=== PATIENT | male | born 1990 | race American Indian/Alaskan Native ===

== ENCOUNTER → 2020-02-01 | Emergency (ER) | payer SELFPAY ==
--- NOTE | 2020-02-01 04:58 | Emergency Department Report ---
ED General Adult HPI - General Chief complaint: Skin/Abscess/Foreign Body Stated complaint: BOIL Source: patient Mode of arrival: Ambulatory Limitations: No Limitations - History of Present Illness Initial comments: Patient is a 29-year-old -Indian male with no past medical history presented to the ED with acute onset persistent painful erythematous maculopapular fluctuant rash on right inguinal area and right upper thigh for the last 5 days. Patient states that the rash appeared after he shaved his pubic area with a razor blade. Patient states that while awaiting to be evaluated by the ED provider, the rash started draining purulent discharge and was assisted to dress the wound by the triage nurse. Patient denies dizziness, fever, chills, cough, nausea, vomiting, testicular pain, dysuria, urinary frequency and urgency, change in vision, numbness and tingling or weakness of right leg and back pain, hematuria or penile discharge. MD Complaint: abscess; painful rash on right inguinal area -: Sudden, days(s) (5) Location: pelvis (Right inguinal area), right, lower extremity (Right inguinal and upper right) Radiation: non-radiation Severity scale (0 -10): 2 Quality: aching, dull Consistency: constant Improves with: none Worsens with: none Associated Symptoms: denies other symptoms. denies: confusion, chest pain, cough, diaphoresis, fever/chills, headaches, loss of appetite, malaise, nausea/vomiting, rash, seizure, shortness of breath, syncope, weakness Treatments Prior to Arrival: none - Related Data Previous Rx's Medication Instructions Recorded Last Taken Type Ibuprofen [Motrin] 600 mg PO Q8H PRN #20 tablet 02/01/20 Unknown Rx Sulfamethoxazole/Trimethoprim 1 each PO BID #20 tablet 02/01/20 Unknown Rx [Bactrim DS TAB] Allergies Allergy/AdvReac Type Severity Reaction Status Date / Time No Known Allergies Allergy Unverified 02/01/20 01:25 ED Review of Systems ROS: Stated complaint: BOIL Other details as noted in HPI Constitutional: denies: chills, fever Eyes: denies: eye pain, eye discharge, vision change ENT: denies: ear pain, throat pain Respiratory: denies: cough, shortness of breath, wheezing Cardiovascular: denies: chest pain, palpitations Endocrine: no symptoms reported Gastrointestinal: denies: abdominal pain, nausea, diarrhea Genitourinary: denies: urgency, dysuria Musculoskeletal: arthralgia (Right inguinal pain due to erythematous maculopapular rash), myalgia. denies: back pain, joint swelling Skin: rash (Painful erythematous maculopapular rash on right inguinal area), change in color. denies: lesions Neurological: denies: headache, weakness, paresthesias Psychiatric: denies: anxiety, depression Hematological/Lymphatic: denies: easy bleeding, easy bruising ED Past Medical Hx - Past Medical History Previous Medical History?: No - Surgical History Past Surgical History?: No - Social History Smoking Status: Current Some Day Smoker Substance Use Type: None - Medications Home Medications: Home Medications Medication Instructions Recorded Confirmed Last Taken Type Ibuprofen [Motrin] 600 mg PO Q8H PRN #20 tablet 02/01/20 Unknown Rx Sulfamethoxazole/Trimethoprim 1 each PO BID #20 tablet 02/01/20 Unknown Rx [Bactrim DS TAB] ED Physical Exam - General Limitations: No Limitations General appearance: alert, in no apparent distress - Head Head exam: Present: atraumatic, normocephalic, normal inspection - Eye Eye exam: Present: normal appearance, PERRL, EOMI - ENT ENT exam: Present: normal exam, normal orophraynx, mucous membranes moist, TM's normal bilaterally, normal external ear exam - Neck Neck exam: Present: normal inspection, full ROM - Respiratory Respiratory exam: Present: normal lung sounds bilaterally. Absent: respiratory distress, wheezes, rales, chest wall tenderness, accessory muscle use, decreased breath sounds - Cardiovascular Cardiovascular Exam: Present: regular rate, normal rhythm, normal heart sounds. Absent: systolic murmur, diastolic murmur, rubs, gallop - GI/Abdominal GI/Abdominal exam: Present: soft, normal bowel sounds. Absent: tenderness, guarding, rebound, hyperactive bowel sounds - exam: Present: normal inspection External exam: Present: normal external exam, other (Erythematous tender maculopapular rash on right inguinal area with purulent discharge) - Extremities Exam Extremities exam: Present: normal inspection, full ROM, normal capillary refill. Absent: pedal edema, joint swelling - Back Exam Back exam: Present: normal inspection, full ROM. Absent: tenderness, muscle spasm - Neurological Exam Neurological exam: Present: alert, oriented X3, CN II-XII intact, normal gait - Psychiatric Psychiatric exam: Present: normal affect, normal mood - Skin Skin exam: Present: warm, dry, intact, normal color, rash (Erythematous maculopapular wound on right inguinal area with purulent discharge) ED Course Vital Signs 02/01/20 01:21 Temperature 98.6 F Pulse Rate 76 Respiratory 18 Rate Blood Pressure 143/98 O2 Sat by Pulse 100 Oximetry ED Medical Decision Making - Medical Decision Making This is a 29-year-old -Indian male with no past medical history presented to the ED with acute onset persistent painful erythematous maculopapular fluctuant rash on right inguinal area and right upper thigh for the last 5 days. Patient states that the rash appeared after he shaved his pubic area with a razor blade. Patient states that while awaiting to be evaluated by the ED provider, the rash started draining purulent discharge and was assisted to dress the wound by the triage nurse. In the ED, patient is alert and oriented x3 and is not in distress. The wound was cleaned and redressed and the patient was discharged home on pain medication and prophylactic antibiotics. Patient symptoms are due to acute folliculitis or cellulitis due to shaving of the pubic area. Patient was advised to follow-up with his primary care physician in 5 to 7 days for reevaluation or return to the ED immediately if symptoms get worse. - Differential Diagnosis Acute folliculitis; cellulitis; cutaneous abscess; insect bite Critical care attestation.: If time is entered above; I have spent that time in minutes in the direct care of this critically ill patient, excluding procedure time. ED Disposition Clinical Impression: Acute folliculitis, Cellulitis of right groin Disposition: DC-01 TO HOME OR SELFCARE Is pt being admited?: No Does the pt Need Aspirin: No Condition: Stable Instructions: Cellulitis (ED), Folliculitis (ED) Additional Instructions: Take medication with food, drink plenty of fluids and follow-up with your primary care physician in 5 to 7 days for reevaluation. Return to the ED immediately if symptoms get worse. Prescriptions: Sulfamethoxazole/Trimethoprim [Bactrim DS TAB] 1 each PO BID #20 tablet Ibuprofen [Motrin] 600 mg PO Q8H PRN #20 tablet PRN Reason: Pain Referrals: [facility] [Provider Group] - 7-10 days Time of Disposition: 04:57 Print Language: BULGARIAN
== END | disposition home or self-care (01) ==
LOC: ED 00:56
DX: L03.314 Cellulitis of groin (principal); L73.9 Follicular disorder, unspecified; F17.200 Nicotine dependence, unspecified, uncomplicated; Z79.899 Other long term (current) drug therapy
CPT/HCPCS: 99282

== ENCOUNTER 2022-03-20 15:35 | Emergency (ER) | payer SELFPAY ==
--- NOTE | 2022-03-20 16:56 | XRay Report ---
RIGHT FOOT 3 VIEW(S) INDICATION / CLINICAL INFORMATION: injury COMPARISON: None available. FINDINGS: BONES / JOINT(S): No acute fracture or subluxation. No significant arthritis. SOFT TISSUES: No significant abnormality. ADDITIONAL FINDINGS: None. IMPRESSION: 1. No acute findings. Signer Name: Samuel Hratman MD Signed: 03/20/2022 4:52 PM Workstation Name: [id number]
--- NOTE | 2022-03-20 17:33 | XRay Report ---
RIGHT HAND 4 VIEW(S) INDICATION / CLINICAL INFORMATION: injury COMPARISON: None available. FINDINGS: BONES / JOINT(S): Acute mildly displaced fracture involving the distal ring finger metacarpal neck. N o significant arthritis. SOFT TISSUES: Dorsal soft tissue swelling ADDITIONAL FINDINGS: None. IMPRESSION: 1. Acute mildly displaced fracture involving distal ring finger metacarpal neck Signer Name: Samuel Hartman MD Signed: 03/20/2022 5:28 PM Workstation Name: [id number]
[2022-03-20] MEDS ORDERED: oxyCODONE /ACETAMINOPHEN 5-325MG TAB PO ONE (22:31)
--- NOTE | 2022-03-20 23:02 | Emergency Department Report ---
ED General Adult HPI - General Chief complaint: Extremity Injury, Upper Stated complaint: RT HAND AND FOOT INJURY Time Seen by Provider: 03/20/22 20:55 Source: patient Mode of arrival: Ambulatory Limitations: No Limitations - History of Present Illness Initial comments: 31-year-old male presenting department complaining of injury to the hand and foot at work. Afebrile. He reports falling down and striking his fifth finger on the ball as it rolled over involving his right foot/ankle resulting in pain to the foot and hand. Ports no numbness, no tingling, no no head injury no loss of consciousness no blurred vision no dizziness. -: Gradual Radiation: non-radiation Severity scale (0 -10): 8 Quality: dull Consistency: constant Improves with: none Worsens with: none Associated Symptoms: denies: chest pain, diaphoresis, malaise, nausea/vomiting Treatments Prior to Arrival: none - Related Data Previous Rx's Medication Instructions Recorded Last Taken Type Ibuprofen [Motrin] 600 mg PO Q8H PRN #20 tablet 02/01/20 Unknown Rx Sulfamethoxazole/Trimethoprim 1 each PO BID #20 tablet 02/01/20 Unknown Rx [Bactrim DS TAB] Acetaminophen/Codeine [Tylenol 1 tab PO Q6H PRN #14 tab 03/20/22 Unknown Rx /Codeine # 3 tab] Allergies Allergy/AdvReac Type Severity Reaction Status Date / Time No Known Allergies Allergy Unverified 02/01/20 01:25 ED Review of Systems ROS: Stated complaint: RT HAND AND FOOT INJURY Other details as noted in HPI Comment: All other systems reviewed and negative ED Past Medical Hx - Past Medical History Previous Medical History?: No - Surgical History Past Surgical History?: No - Social History Smoking Status: Never Smoker - Medications Home Medications: Home Medications Medication Instructions Recorded Confirmed Last Taken Type Ibuprofen [Motrin] 600 mg PO Q8H PRN #20 tablet 02/01/20 Unknown Rx Sulfamethoxazole/Trimethoprim 1 each PO BID #20 tablet 02/01/20 Unknown Rx [Bactrim DS TAB] Acetaminophen/Codeine [Tylenol 1 tab PO Q6H PRN #14 tab 03/20/22 Unknown Rx /Codeine # 3 tab] ED Physical Exam - General Limitations: No Limitations General appearance: alert, in no apparent distress - Head Head exam: Present: atraumatic, normocephalic - Eye Eye exam: Present: normal appearance, PERRL, EOMI Pupils: Present: normal accommodation - ENT ENT exam: Present: normal exam, normal orophraynx, mucous membranes moist, TM's normal bilaterally - Neck Neck exam: Present: normal inspection, full ROM - Respiratory Respiratory exam: Present: normal lung sounds bilaterally. Absent: respiratory distress, wheezes, rales, chest wall tenderness, accessory muscle use - Cardiovascular Cardiovascular Exam: Present: regular rate, normal rhythm. Absent: systolic murmur, diastolic murmur, rubs, gallop - GI/Abdominal GI/Abdominal exam: Present: soft, normal bowel sounds - Rectal Rectal exam: Present: deferred - Extremities Exam Extremities exam: Present: normal inspection, tenderness, normal capillary refill - Expanded Upper Extremity Exam Right Hand Wrist exam: Present: tenderness, swelling Hand L/R Back: 1 - Pain and swelling to this region worse with flexion extension cap refills brisk Neurosensory exam: Present: 2-point discrimination Vascular: Present: normal capillary refill - Expanded Lower Extremity Exam Right Foot/Toe exam: Present: tenderness, swelling. Absent: ecchymosis, deformity, calcaneal tenderness, tenderness at base of 5th metatarsal Neuro vascular tendon exam: Present: no vascular compromise 1 - Tenderness to this region - Back Exam Back exam: Present: normal inspection. Absent: CVA tenderness (R), CVA tenderness (L) - Neurological Exam Neurological exam: Present: alert, oriented X3, CN II-XII intact - Psychiatric Psychiatric exam: Present: normal affect, normal mood - Skin Skin exam: Present: warm, dry, intact, normal color. Absent: rash ED Course Vital Signs 03/20/22 16:02 Temperature 98.9 F Pulse Rate 68 Respiratory 14 Rate Blood Pressure 124/81 O2 Sat by Pulse 100 Oximetry - Procedure Description Procedures done: Aluminum finger splint placed in the right hand and Velcro stirrup to the right foot/ Critical care attestation.: If time is entered above; I have spent that time in minutes in the direct care of this critically ill patient, excluding procedure time. ED Disposition Clinical Impression: Right foot strain, Finger fracture, right Disposition: HOME / SELF CARE / HOMELESS Is pt being admited?: No Does the pt Need Aspirin: No Condition: Stable Instructions: How to Use a Stirrup Ankle Brace, [id number], Finger Fracture, Adult, Elastic Bandage and RICE Therapy Prescriptions: Acetaminophen/Codeine [Tylenol /Codeine # 3 tab] 1 tab PO Q6H PRN #14 tab PRN Reason: pain Referrals: [facility] [Provider Group] - 3-5 Days
[2022-03-20 23:47] VITALS: BP 132/86
== END 2022-03-20 23:47 | disposition home or self-care (01) ==
LOC: ED 15:35
DX: S96.911A Strain of unspecified muscle and tendon at ankle and foot level, right foot, initial encounter (principal); S62.606A Fracture of unspecified phalanx of right little finger, initial encounter for closed fracture; W19.XXXA Unspecified fall, initial encounter; Y93.89 Activity, other specified; Y92.89 Other specified places as the place of occurrence of the external cause; Y99.8 Other external cause status
CPT/HCPCS: 99283